=== PATIENT | female | born 1990 | race Hispanic/Latino ===

== ENCOUNTER 2021-02-17 09:28 | Emergency (ER) | payer SELFPAY ==
[~2021-02-17] VITALS: Ht 162.6 cm; Wt 59.9 kg
[2021-02-17] MEDS ORDERED: FEROSUL325 MG PO (10:02)
[2021-02-17] MEDS ORDERED: KETOROLAC TROMETHAMINE 30 MG/ML VIAL IV STA (10:40)
[2021-02-17] MEDS ORDERED: KETOROLAC TROMETHAMINE 30 MG/ML VIAL ONE (11:07)
[2021-02-17 11:57] LABS: BASOPHILS # (AUTO) 0.1 (0.0-0.1); BASOPHILS % 1.3 % (0.0-1.0); EOSINOPHILS # (AUTO) 0.1 (0.0-0.4); HEMATOCRIT 35.5 % (34.2-44.1); LYMPHOCYTES # (AUTO) 2.4 (1.0-3.2); LYMPHOCYTES % 37.7 % (18.0-39.1); MEAN CORPUSCULAR HEMOGLOBIN 23.3 pg (28-32); MEAN CORPUSCULAR VOLUME 75.2 fL (81-99); MONOCYTES # (AUTO) 0.4 (0.2-0.8); MONOCYTES % 6.4 % (4.4-11.3); NEUTROPHILS # (AUTO) 3.3 (2.1-6.9); NEUTROPHILS % 52.4 % (38.7-80.0); PLATELET COUNT 236 x10e3/uL (140-360); RED BLOOD COUNT 4.72 x10e6/uL (3.6-5.1); RED CELL DISTRIBUTION WIDTH 15.1 % (11.7-14.4)
[2021-02-17] MEDS ORDERED: NAPROSYN500 MG PO (12:15)
[2021-02-17 13:45] VITALS: BP 116/61
== END 2021-02-17 12:32 | disposition home or self-care (01) ==
LOC: FSED 10:30
DX: R07.89 Other chest pain (principal); R09.1 Pleurisy; R06.02 Shortness of breath; R05 Cough; D64.9 Anemia, unspecified
CPT/HCPCS: 36415; 71046; 80048; 80076; 81003; 81025; 82553; 84484; 85025; 93005; 96374; 99284; J1885

== ENCOUNTER 2022-02-14 09:08 | Emergency (ER) | payer SELFPAY ==
[~2022-02-14] VITALS: Ht 162.6 cm; Wt 64.4 kg
[~2022-02-14 09:08] MED LIST: FEROSUL325 MG PO; NAPROSYN500 MG PO
[2022-02-14] MEDS ORDERED: KETOROLAC TROMETHAMINE 30 MG/ML VIAL IV STA (09:54)
[2022-02-14] MEDS ORDERED: SODIUM CHLORIDE 0.9% 1000ML 1,000 ML IV SCH (10:00)
[2022-02-14] MEDS ORDERED: KETOROLAC TROMETHAMINE 30 MG/ML VIAL ONE (10:29)
[2022-02-14] MEDS ORDERED: SODIUM CHLORIDE 0.9% 1000ML 1,000 ML ONE (10:29)
[2022-02-14] MEDS ORDERED: IOPAMIDOL 370 MG/ML 200 ML INFUS..BTL INJ ONE (11:18)
== END 2022-02-14 12:58 | disposition home or self-care (01) ==
LOC: FSED 09:47
DX: R10.12 Left upper quadrant pain (principal); R14.0 Abdominal distension (gaseous); R19.5 Other fecal abnormalities
CPT/HCPCS: 74177; 80048; 80076; 81003; 81025; 85025; 99283; J1885; J7030; Q9967

== ENCOUNTER 2025-07-16 11:03 | Emergency (ER) | payer SELFPAY ==
[~2025-07-16] VITALS: Ht 157.5 cm; Wt 61.3 kg
[2025-07-16] MEDS: SODIUM CHLORIDE 0.9% 1000ML 1,000 ML IV ONE (12:01)
[2025-07-16] MEDS: KETOROLAC TROMETHAMINE 30 MG/ML VIAL IV STA (12:02)
[2025-07-16] MEDS ORDERED: IBUPROFEN600 MG PO (13:04)
[2025-07-16 13:26] VITALS: PULSE 52; RESP 16; TEMP 97.8; O2SAT 99
== END 2025-07-16 13:26 | disposition home or self-care (01) ==
LOC: FSED 11:10
DX: R10.2 Pelvic and perineal pain (principal); R10.32 Left lower quadrant pain; Z87.42 Personal history of other diseases of the female genital tract
CPT/HCPCS: 74176; 76830; 76856; 80053; 81003; 81025; 85025; 96374; 99284; J1885; J7030